=== PATIENT | female | born 1980 | race Caucasian/White ===

== ENCOUNTER 2017-09-01 08:15 | Emergency (ER) | payer SELFPAY ==
[~2017-09-01] VITALS: Ht 165.1 cm; Wt 65.8 kg
[~2017-09-01 08:15] MED LIST: DZPM2T PO; HYDR-2854 PO; HYDR-3583 PO; LEVO75TA6 PO; LVT.05T PO; METR500T PO
--- OUTSIDE RECORDS SUMMARY | 2017-09-01 09:11 | XMS REPORT ---
Author Author STEVIE VALDIVIA Organization [employer] Address Unknown Phone Unavailable Care Team Providers Care Keg Filler Name Role Phone STEVIE VALDIVIA CP Unavailable Allergies, Adverse Reactions, Alerts Substance Reaction Event Type Zithromax Z-Bradley Info Not Available Drug Allergy Problems Problem Type Condition Code Onset Dates Condition Status Assessment Encounter for dental examination Z01.20 Active Problem Encounter for dental examination Z01.20 Active Medications Medication Code System Code Instructions Start Date End Date Status Dosage Sprintec 28 [facility] [id number] not defined Synthroid [facility] [id number] 75 MCG Orally Once a day 1 tablet Procedures Procedure Coding System Code Date BITEWINGS - FOUR FILMS CPT-4 D0274 Sep 02, 2016 Periodontal maint procedures CPT-4 D4910 Sep 02, 2016 PERIODIC ORAL EXAMINATION CPT-4 D0120 Sep 02, 2016 TOPICAL FLUORIDE VARNISH CPT-4 D1206 Sep 02, 2016 Vital Signs Date/Time: Sep 02, 2016 Blood Pressure Diastolic 66 mmHg Blood Pressure Systolic 102 mmHg Cardiac Monitoring Heart Rate 69 bpm Results No Known Results Summary Purpose [employer] Submission
--- OUTSIDE RECORDS SUMMARY | 2017-09-01 09:11 | XMS REPORT ---
Author Author STEVIE VALDIVIA Organization [employer] Address Unknown Phone Unavailable Care Team Providers Care Dye Room Helper Name Role Phone STEVIE VALDIVIA CP Unavailable Allergies No Known Allergies Problems Problem Type Condition ICD-9 Code Onset Dates Condition Status Assessment Dental examination V72.2 Active Medications No Known Medications Procedures Procedure Coding System Code Date INTRAORL-PERIAPICAL 1 FILM 58854 CPT-4 D0220 Jul 03, 2015 INTRAORL-PERIAPICAL EA ADD FILM CPT-4 D0230 Jul 03, 2015 COMP ORAL EVALUATION - NEW/EST PT CPT-4 D0150 Jul 03, 2015 Periodontal scaling & root CPT-4 D4341 Jul 03, 2015 BITEWINGS - FOUR FILMS CPT-4 D0274 Jul 03, 2015 INTRAORL-PERIAPICAL EA ADD FILM CPT-4 D0230 Jul 03, 2015 Periodontal scaling & root CPT-4 D4341 Jul 03, 2015 PANORAMIC FILM SEE ALSO CODE 93570 CPT-4 D0330 Jul 03, 2015 Results No Known Results Summary Purpose [employer] Submission
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
--- OUTSIDE RECORDS SUMMARY | 2017-09-01 09:11 | XMS REPORT ---
Author Author STEVIE VALDIVIA [facility] Address [address] [place] [address] Care Team Providers Care Concrete Block Layer Name Role Phone STEVIE VALDIVIA Unavailable PROBLEMS Type Condition ICD9-CM Code QFE38-YM Code Onset Dates Condition Status SNOMED Code Problem Encounter for dental examination Z01.20 Active [id number] ALLERGIES Substance Reaction Event Type Date Status Zithromax Z-Bradley Unknown Drug Allergy Dec, Active SOCIAL HISTORY Never Assessed PLAN OF CARE Activity Details Follow Up 3 Months Reason:Perio Maint VITAL SIGNS Heart Rate 96 bpm 2016-12-04 Blood pressure systolic 113 mmHg 2016-12-04 Blood pressure diastolic 71 mmHg 2016-12-04 MEDICATIONS Medication Instructions Dosage Frequency Start Date End Date Duration Status Sprintec 28 Active Synthroid 75 MCG Orally Once a day 1 tablet 24h Active RESULTS No Results PROCEDURES Procedure Date Ordered Result Body Site Periodontal maint procedures Dec 04, 2016 IMMUNIZATIONS No Known Immunizations MEDICAL (GENERAL) HISTORY Type Description Date Medical History Thyroid problems Medical History GYNOCOLOGICAL - 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
[2017-09-01 09:12] LABS: BASOPHILS # (AUTO) 0.1 10^3/uL (0.0-0.1); BASOPHILS % (AUTO) 1 % (0-10); EOSINOPHILS # (AUTO) 0.3 10^3/uL (0.0-0.3); EOSINOPHILS % (AUTO) 4 % (0-10); LYMPHOCYTES # (AUTO) 2.8 X 10^3 (1.0-4.0); LYMPHOCYTES % (AUTO) 32 % (12-44); MEAN CORPUSCULAR HEMOGLOBIN 30 PG (25-34); MEAN CORPUSCULAR HGB CONC 34 G/DL (32-36); MEAN CORPUSCULAR VOLUME 87 FL (80-99); MEAN PLATELET VOLUME 10.9 FL (7.4-10.4); MONOCYTES # (AUTO) 0.6 X 10^3 (0.0-1.0); MONOCYTES % (AUTO) 6 % (0-12); NEUTROPHILS % (AUTO) 58 % (42-75); PLATELET COUNT 205 10^3/uL (130-400); RED BLOOD COUNT 4.42 10^6/uL (4.35-5.85); RED CELL DISTRIBUTION WIDTH 13.3 % (10.0-14.5); WHITE BLOOD COUNT 8.7 10^3/uL (4.3-11.0)
[2017-09-01 09:28] LABS: ALANINE AMINOTRANSFERASE 15 U/L (0-55); ALBUMIN 3.8 GM/DL (3.2-4.5); ANION GAP 8 MMOL/L (5-14); ASPARTATE AMINO TRANSFERASE 14 U/L (5-34); BILIRUBIN,TOTAL 0.8 MG/DL (0.1-1.0); BLOOD UREA NITROGEN 17 MG/DL (7-18); BUN/CREATININE RATIO 19; CALCIUM 8.7 MG/DL (8.5-10.1); CARBON DIOXIDE 22 MMOL/L (21-32); CHLORIDE 109 MMOL/L (98-107); GFR ESTIMATED > 60; GLUCOSE 79 MG/DL (70-105); POTASSIUM 3.6 MMOL/L (3.6-5.0); SODIUM 139 MMOL/L (135-145)
[2017-09-01 09:45] LABS: BILIRUBIN,URINE NEGATIVE (NEGATIVE); KETONES,URINE NEGATIVE (NEGATIVE); LEUKOCYTE ESTERASE ,URINE NEGATIVE (NEGATIVE); NITRITE,URINE NEGATIVE (NEGATIVE); PH,URINE 7 (5-9); PROTEIN,URINE NEGATIVE (NEGATIVE); UROBILINOGEN,URINE 1 MG/DL (NORMAL)
[2017-09-01 10:01] LABS: SQUAMOUS EPITHELIAL CELL,UR TNTC /HPF
--- NOTE | 2017-09-01 10:48 | Diagnostic Imaging Report ---
INDICATION: Chest pain COMPARISON: 06/19/2007 FINDINGS: Upright portable view of the chest is obtained. Heart size is normal. The pulmonary vessels appear unremarkable. There is no pneumothorax, mediastinal widening or pleural fluid demonstrated. Lungs are clear. IMPRESSION: No acute abnormalities demonstrated. Dictated by: Dictated on workstation # [id number]
[2017-09-01 10:52] LABS: THYROID STIMULATING HORMONE 9.81 UIU/ML (0.35-4.94); TROPONIN I < 0.30 NG/ML (<0.30)
--- NOTE | 2017-09-01 11:44 | ED General ---
General Chief Complaint: General Problems/Pain Stated Complaint: POSSIBLE SEIZURE,CP Nursing Triage Note: STATES LAST NIGHT SHE TOOK A BITE OF FOOD AND STARTED HAVING LEFT SIDED CHEST PAIN. FAMILY FOUND HER PASSED OUT. WHEN SHE AWOKE SHE HAD BEEN INC OF URINE. STATES SHE THINKS SHE HAD A SEIZURE AND OR HAD A HEART ATTACK. STATES SHE HAS BEEN UNDER A GREAT DEAL OF STRESS. Nursing Sepsis Screen: No Definite Risk Source of Information: Patient Exam Limitations: No Limitations History of Present Illness Time Seen by Provider: 08:50 Initial Comments This 37-year-old young lady presents to the emergency room requesting evaluation for an episode that happened last night. She reports standing in the kitchen when a sudden sharp pain occurred in the left chest. The pain radiated to the left shoulder and neck. She then went to the living room anticipating calling for help. She sat down on the stairs. Her significant other and her son found her there with decreased responsiveness. She was also diaphoretic. She had apparently lost some urine and was unresponsive for about 5 seconds. She has been under increased stress recently and has had weight loss. She has not been very compliant with her thyroid medication. She has had some anorexia related to her stress. She is feeling much better today. She denies any headache although she has had some headaches recently. The chest pain is gone. She has a notably tender tense muscle medial to the left scapula. Allergies and Home Medications Allergies Coded Allergies: azithromycin (Verified Allergy, Unknown, 04/14/16) Home Medications Levothyroxine Sodium 75 Mcg Tablet, 75 MCG PO DAILY, #30 Prescribed by: INDRA ADDISON on 04/14/16 7590 Constitutional: see HPI EENTM: no symptoms reported Respiratory: see HPI Cardiovascular: see HPI Gastrointestinal: no symptoms reported Genitourinary: no symptoms reported Musculoskeletal: no symptoms reported Skin: no symptoms reported Psychiatric/Neurological: See HPI Hematologic/Lymphatic: No Symptoms Reported Past Zppuaug-Indywn-Zhbugz Hx Patient Social History Alcohol Use: Occasionally Uses Recreational Drug Use: Yes (POT) Smoking Status: Never a Smoker Recent Foreign Travel: No Contact w/Someone Who Travel: No Recent Infectious Disease Expo: No Recent Hopitalizations: Yes (CHILDBIRTH) Immunizations Up To Date Tetanus Booster (TDap): More than 5yrs Surgeries History of Surgeries: Yes (hemorrhoidectomy) Surgeries: Appendectomy Respiratory History of Respiratory Disorde: No Cardiovascular History of Cardiac Disorders: No Neurological History of Neurological Disord: Yes Neurological Disorders: Headaches /Migraines Reproductive System : No Last Menstrual Period: Aug 01, 2017 Hx Reproductive Disorders: Yes Female Reproductive Disorders: Ovarian Cyst Genitourinary History of Genitourinary Disor: No Gastrointestinal History of Gastrointestinal Di: Yes Gastrointestinal Disorders: Hemorrhoids Musculoskeletal History of Musculoskeletal Dis: No Endocrine History of Endocrine Disorders: Yes Endocrine Disorders: Hypothyroidsim HEENT History of HEENT Disorders: No Cancer History of Cancer: No Psychosocial History of Psychiatric Problem: Yes Behavioral Health Disorders: Eating Disorder, Anxiety, Depression Integumentary History of Skin or Integumenta: No Blood Transfusions History of Blood Disorders: No Family Medical History Significant Family History: Other Conditions/Hx Physical Exam Vital Signs Vital Sign - Last 12Hours 09/01/17 09/01/17 08:30 11:52 Temp 98.0 Pulse 65 Resp 18 B/P (MAP) 112/86 Pulse Ox 100 O2 Delivery Nasal Cannula Capillary Refill : Less Than 3 Seconds General Appearance: No Apparent Distress, WD/WN HEENT: PERRL/EOMI, Normal ENT Inspection, Pharynx Normal Neck: Normal Inspection Respiratory: Chest Non Tender, Lungs Clear, Normal Breath Sounds, No Accessory Muscle Use Cardiovascular: Regular Rate, Rhythm, No Edema, No Murmur Gastrointestinal: Normal Bowel Sounds, Non Tender, Soft Extremity: Normal Inspection, Non Tender, No Calf Tenderness, No Pedal Edema, Other (Negative Jorge. 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 She was advised to follow up closely with her primary care provider and return to care if symptoms returned. ECG Initial ECG Impression Date: Sep 01, 2017 Initial ECG Impression Time: 08:47 Initial ECG Rate: 49 Initial ECG Rhythm: S.Lennox Comment Borderline sinus bradycardia with no ST elevation or depression. No abnormal intervals or axis deviation. 2 PACs noted. Diagnostic Imaging Diagonstic Imaging: Xray Plain Films/CT/US/NM/MRI: chest Comments NAME: CARLOS ESPINAL [facility] REC#: [id number] PT STATUS: REG ER : 1980 PHYSICIAN: BRENNEN BERRY MD ADMIT DATE: 09/01/17/ER Signed Date of Exam: 09/01/17 CHEST 1 VIEW, AP/PA ONLY INDICATION: Chest pain COMPARISON: 06/19/2007 FINDINGS: Upright portable view of the chest is obtained. Heart size is normal. The pulmonary vessels appear unremarkable. There is no pneumothorax, mediastinal widening or pleural fluid demonstrated. Lungs are clear. IMPRESSION: No acute abnormalities demonstrated. Dictated by: Dictated on workstation # [id number] Dict: 09/01/17 1040 Trans: 09/01/17 1053 Interpreted by: TELMA PEREZ DO Electronically signed by: TELMA PEREZ DO 09/01/17 1053 Departure Impression Impression: Primary Impression: Atypical chest pain Additional Impressions: Syncope Qualified Codes: R55 - Syncope and collapse Muscle spasm of back Disposition: HOME, SELF-CARE Condition: Improved Departure-Patient Inst. Decision time for Depature: 11:42 Referrals: NO,LOCAL PHYSICIAN (PCP/Family) Primary Care Physician Patient Instructions: Chest Pain That Is Not Caused by the Heart (DC), Syncope (Fainting) Add. Discharge Instructions: Drink plenty of clear liquids. Follow-up with your primary care provider soon as possible. Return to emergency room if symptoms worsen. You may use ibuprofen up to 600 milligrams every 6 hours as needed for pain. Add Tylenol (acetaminophen) up to 1000 mg every 6 hours as needed for additional pain relief. Gentle heat such as a heating pad on low may also be helpful for your spasms muscle. Return to the emergency room if you have any further episodes of syncope ( passing out). All discharge instructions reviewed with patient and/or family. Voiced understanding. BRENNEN BERRY MD Sep 01, 2017 11:44
[2017-09-01 11:52] VITALS: BP 96/66
== END 2017-09-01 11:52 | disposition home or self-care (01) ==
LOC: EDUNIT# 08:15 → ER 08:16
DX: M62.830 Muscle spasm of back (principal); R07.89 Other chest pain; R55 Syncope and collapse; F41.9 Anxiety disorder, unspecified; F31.9 Bipolar disorder, unspecified; E03.9 Hypothyroidism, unspecified; Z87.42 Personal history of other diseases of the female genital tract; Z90.49 Acquired absence of other specified parts of digestive tract; Z87.19 Personal history of other diseases of the digestive system
CPT/HCPCS: 36415; 71010; 80053; 81000; 83735; 84439; 84443; 84484; 84703; 85025; 93005

== ENCOUNTER 2018-06-16 14:56 | Emergency (ER) | payer SELFPAY ==
[~2018-06-16] VITALS: Ht 162.6 cm; Wt 61.2 kg
[2018-06-16] MEDS ORDERED: SERT25TA PO (15:34)
[2018-06-16] MEDS ORDERED: KETOROLAC 60 MG/2 ML VIAL IM STA (15:57)
--- NOTE | 2018-06-16 16:09 | ED Upper Extremity ---
General Chief Complaint: Upper Extremity Stated Complaint: RT ARM TINGLING/BURNING Nursing Triage Note: PT CO OF R UPPER EXT NUMBNESS AND BURNING TO R ARM, PT STATES CUTS HAIR AND CLEANS HOUSES. PT STATES HAS BURNING FROM BACK OF NECK TO HAND FOR A FEW WEEKS Nursing Sepsis Screen: No Definite Risk (BRENNEN WILKERSON) History of Present Illness Date Seen by Provider: Jun 16, 2018 Time Seen by Provider: 15:22 Initial Comments Patient with history of carpal tunnel syndrome and hypothyroidism presents to emergency department with complaints of numbness, tingling, and burning sensation which radiates from her right scapula down her right upper extremity to her fingertips. She reports that she has a history of carpal tunnel syndrome but the symptoms began to worsen when she took a road trip to [place] on . The discomfort is constant and worsens when she wakes from sleep at night. She has a history of hypothyroidism and stopped receiving treatment for it two years prior during a period that she became uninsured. She was given a prescription for levothyroxine a month prior to symptom onset, but has yet to begin taking the medication. She has a history of right sided headaches that cause cervical tension and exacerbate the symptoms of her arm. Onset: other (05/21/18) Severity: mild Pain/Injury Location: right shoulder, right arm, right elbow, right forearm, right wrist, right hand, right 3rd finger Method of Injury: unknown Modifying Factors: Worse With Rest (BRENNEN WILKERSON) Onset: other (05/21/18) Modifying Factors: Improves With Immobilization; Worse With Movement (JULIETTE TEJEDA MD) Allergies and Home Medications Allergies Coded Allergies: azithromycin (Verified Allergy, Unknown, 04/14/16) Home Medications Levothyroxine Sodium 75 Mcg Tablet, 75 MCG PO DAILY Prescribed by: INDRA ADDISON on 04/14/16 7187 Prednisone 20 Mg Tab, 40 MG PO DAILY Prescribed by: JULIETTE TEJEDA on 06/16/18 1725 Patient Home Medication List Home Medication List Reviewed: Yes (BRENNEN WILKERSON) Home Medication List Reviewed: Yes (JULIETTE TEJEDA MD) Constitutional: see HPI EENTM: blurred vision; No hearing loss, No double vision, No vision loss Respiratory: see HPI, short of breath Cardiovascular: chest pain, syncope Gastrointestinal: No abdominal pain; constipation, diarrhea, loss of appetite; No nausea, No vomiting Genitourinary: no symptoms reported Musculoskeletal: muscle pain, muscle weakness, neck pain Skin: no symptoms reported Psychiatric/Neurological: Anxiety, Depressed, Headache, Numbness, Paresthesia, Seizure, Tingling, Weakness (BRENNEN WILKERSON) Respiratory: No cough, No wheezing Cardiovascular: No chest pain, No palpitations Musculoskeletal: joint swelling, muscle pain, muscle stiffness Skin: no symptoms reported (JULIETTE TEJEDA MD) Past Hwwccgq-Vqtipu-Fgjefl Hx Past Med/Social Hx: Reviewed Nursing Past Med/Soc Hx (JULIETTE TEJEDA MD) Patient Social History Alcohol Use: Occasionally Uses Recreational Drug Use: Yes (SMOKES POT) Smoking Status: Never a Smoker Recent Foreign Travel: No Contact w/Someone Who Travel: No Recent Infectious Disease Expo: No Recent Hopitalizations: No (CHILDBIRTH) Physical Abuse: No Sexual Abuse: No (BRENNEN WILKERSON) Immunizations Up To Date Tetanus Booster (TDap): More than 5yrs (BRENNEN WILKERSON) Past Medical History Surgeries: Yes (hemorrhoidectomy) Appendectomy, Rectal (Anal fissure repair, hemmorrhoidectomy) Respiratory: No Cardiac: No Neurological: Yes Headaches /Migraines, Seizure Disorder : No Last Menstrual Period: Jun 01, 2018 Reproductive Disorders: Yes Female Reproductive Disorders: Ovarian Cyst Genitourinary: No Gastrointestinal: Yes Hemorrhoids Musculoskeletal: No Endocrine: Yes Hypothyroidsim HEENT: No Cancer: No Psychosocial: Yes Eating Disorder, Anxiety, Depression Nursing Suicide Risk Score: 0 Integumentary: No Blood Disorders: No (BRENNEN WILKERSON) Family Medical History Reviewed Nursing Family Hx (JULIETTE TEJEDA MD) Diabetes, Other Conditions/Hx (BRENNEN WILKERSON) Physical Exam Vital Signs Vital Signs - First Documented 06/16/18 15:20 Temp 96.3 Pulse 80 Resp 18 B/P (MAP) 145/103 (117) Pulse Ox 98 (JULIETTE TEJEDA MD) Vital Signs Capillary Refill : Less Than 3 Seconds (BRENNEN WILKERSON) Height, Weight, BMI Height: 5'4.00" Weight: 135lbs. oz. 61.991733pt; BMI Method:Stated General Appearance: WD/WN, mild distress HEENT: PERRL/EOMI, normal ENT inspection, TMs normal, pharynx normal, other ( No thyroidmegaly) Neck: non-tender, full range of motion, supple, normal inspection Cardiovascular: normal peripheral pulses, regular rate, rhythm, no edema, no gallop, no JVD, no murmur Respiratory: chest non-tender, lungs clear, normal breath sounds, no respiratory distress, no accessory muscle use Gastrointestinal: normal bowel sounds, non tender, soft, no organomegaly, no pulsatile mass; No distended, No guarding Back: normal inspection, no vertebral tenderness Shoulder: normal inspection, non-tender, no evidence of injury, normal ROM; No asymmetry, No ecchymosis, No pain, No swelling Elbow/Forearm: normal inspection, non-tender, no evidence of injury, normal ROM , asymmetry, ecchymosis, swelling Wrist: Yes normal inspection, Yes non-tender, Yes no evidence of injury, Yes normal ROM; No asymmetry, No ecchymosis, No swelling Hand: normal inspection, non-tender, no evidence of injury, normal ROM Neurologic/Tendon: No normal sensation (Decreased sensation right upper extremity), No normal motor functions (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) Neurologic/Psychiatric: enrollment eligibility representative II-XII nml as tested; No no motor/sensory deficits (Decreased sensation and pipe welder strength right upper extremity); alert, normal mood/affect, oriented x 3 Skin: normal color, warm/dry Lymphatic: no adenopathy (BRENNEN WILKERSON MED STUDENT) Cardiovascular: regular rate, rhythm, no murmur Respiratory: lungs clear, normal breath sounds, no respiratory distress Elbow/Forearm: no evidence of injury, normal ROM, Right Wrist: Yes normal ROM Hand: no evidence of injury, normal ROM Neurologic/Psychiatric: alert, oriented x 3 Skin: normal color, warm/dry (JULIETTE TEJEDA MD) Progress/Results/Core Measures Results/Orders Lab Results Laboratory Tests Test 06/16/18 16:07 Range/Units Sodium Level 135 135-145 MMOL/L Potassium Level 4.1 3.6-5.0 MMOL/L Chloride Level 106 98-107 MMOL/L Carbon Dioxide Level 24 21-32 MMOL/L Anion Gap 5 5-14 MMOL/L Blood Urea Nitrogen 14 7-18 MG/DL Creatinine 0.69 0.60-1.30 MG/DL Estimat Glomerular Filtration Rate > 60 BUN/Creatinine Ratio 20 Glucose Level 86 70-105 MG/DL Calcium Level 8.9 8.5-10.1 MG/DL Free Thyroxine 0.80 0.70-1.48 NG/DL TSH [place] Testing 6.60 H 0.35-4.94 UIU/ML (JULIETTE TEJEDA MD) My Orders Orders - JULIETTE TEJEDA MD Thyroid Analyzer (06/16/18 15:52) Ct Cervical Spine Wo (06/16/18 15:52) Urine Bedside (06/16/18 15:54) Ketorolac Injection (Toradol Injection) (06/16/18 15:57) Basic Metabolic Panel (06/16/18 16:07) Free T4 (Free Thyroxine) (06/16/18 16:07) (JULIETTE TEJEDA MD) Vital Signs/I&O 06/16/18 15:20 Temp 96.3 Pulse 80 Resp 18 B/P (MAP) 145/103 (117) Pulse Ox 98 (JULIETTE TEJEDA MD) Blood Pressure Mean: 117 Progress Progress Note : Progress Note I have seen and evaluated the patient and agree with above except as indicated. I have directed the plan of care. Patient is here with right arm pain radiating up to her shoulder. She is concerned about neck problems given that she had a accident last year. Pain is worse since last month when she took a road trip and slept on her arm wrong and a. She was wanting further evaluation. Went to urgent care who told her that she is not having pain medicine. She states it does not which she went for and was concerned about the care. She presented to the ER. Does have history of hypothyroidism and is not on her meds currently. Does have history of blood sugar problems and her family and did have a history of gestational diabetes. We will check labs including BMP and thyroid function. CT of the neck ordered. Toradol 60 mg IM ordered. Monitor patient. 1716: CT negative. Wrist splint applied. We will do a short course of outpatient steroids and she has a follow-up point with her doctor next week which she will keep. Discharged home with return precautions. Patient verbalize understanding instructions and agreement with plan. (JULIETTE TEJEDA MD) Diagnostic Imaging Diagonstic Imaging: CT Plain Films/CT/US/NM/MRI: c-spine Comments NAME: CARLOS [facility] REC#: [id number] PT STATUS: GWENDOLYN KABA : 1980 PHYSICIAN: JULIETTE TEJEDA MD ADMIT DATE: 06/16/18/ER Draft Date of Exam:06/16/18 CT CERVICAL SPINE WO PROCEDURE: CT cervical spine without contrast. TECHNIQUE: Multiple contiguous axial images were obtained through the cervical spine without the use of intravenous contrast. Sagittal and coronal reformations were then performed. INDICATION: Headache with trauma 2 months ago. FINDINGS: Sagittal and coronal reformatted images show good alignment. Body heights and disc spaces are well maintained. The atlantoaxial joint is normal. The facets show good alignment. There are no fractures demonstrated. The surrounding soft tissues appear normal. IMPRESSION: Normal CT scan of cervical spine. Dictated on workstation # [id number] Dict: 06/16/18 1700 Trans: 06/16/18 1709 [facility] [id number] Interpreted by: GUILLERMINA LONDON MD Electronically signed by: (JULIETTE TEJEDA MD) Departure Impression Primary Impression: Right arm pain Additional Impression: Carpal tunnel syndrome, right Disposition: 01 HOME, SELF-CARE Condition: Improved Departure-Patient Inst. Decision time for Depature: 17:22 (JULIETTE TEJEDA MD) Referrals: NO,LOCAL PHYSICIAN (PCP/Family) Primary Care Physician Patient Instructions: Carpal Tunnel Syndrome (DC), Muscle Strain (DC) Add. Discharge Instructions: All discharge instructions reviewed with patient and/or family. Voiced understanding. You may take ibuprofen 600 mg every 8 hours as needed for pain. You may take Tylenol/acetaminophen 1000 mg every 8 hours as needed for pain. Take other medications as prescribed. Follow-up with your DrStorm as scheduled next week. Return for worse pain, weakness, swelling, fever or other concerns as needed. Restart and continue your thyroid medications as previously prescribed. Scripts Prednisone (Prednisone) 20 Mg Tab 40 MG PO DAILY, #10 TAB 0 Refills Prov: JULIETTE TEJEDA MD 06/16/18 Copy Copies To 1: MARY BETH RICHARD JOSHUA MED STUDENT Jun 16, 2018 16:09 JULIETTE TEJEDA MD Jun 16, 2018 17:16
[2018-06-16 16:30] LABS: BUN/CREATININE RATIO 20; CALCIUM 8.9 MG/DL (8.5-10.1); CARBON DIOXIDE 24 MMOL/L (21-32); CHLORIDE 106 MMOL/L (98-107); CREATININE SERUM 0.69 MG/DL (0.60-1.30); GFR ESTIMATED > 60; GLUCOSE 86 MG/DL (70-105); POTASSIUM 4.1 MMOL/L (3.6-5.0); SODIUM 135 MMOL/L (135-145)
[2018-06-16 16:51] LABS: TSH (THYROID ANALYZER) 6.6 UIU/ML (0.35-4.94)
--- NOTE | 2018-06-16 17:09 | Diagnostic Imaging Report ---
PROCEDURE: CT cervical spine without contrast. TECHNIQUE: Multiple contiguous axial images were obtained through the cervical spine without the use of intravenous contrast. Sagittal and coronal reformations were then performed. INDICATION: Headache with trauma 2 months ago. FINDINGS: Sagittal and coronal reformatted images show good alignment. Body heights and disc spaces are well maintained. The atlantoaxial joint is normal. The facets show good alignment. There are no fractures demonstrated. The surrounding soft tissues appear normal. IMPRESSION: Normal CT scan of cervical spine. Dictated by: Dictated on workstation # [id number]
[2018-06-16] MEDS ORDERED: PRD20T PO (17:25)
[2018-06-16 17:26] LABS: FREE T4 (FREE THYROXINE) 0.8 NG/DL (0.70-1.48)
[2018-06-16 17:37] VITALS: BP 130/88
--- OUTSIDE RECORDS SUMMARY | 2018-06-17 11:25 | XMS REPORT ---
Author Author STEVIE VALDIVIA [facility] DENT[facility] Address [address] [place] [address] Care Team Providers Care Real Estate Photographer Name Role Phone STEVIE VALDIVIA Unavailable PROBLEMS Type Condition ICD9-CM Code [id number] Code Onset Dates Condition Status SNOMED Code Problem Encounter for dental examination Z01.20 Active [id number] ALLERGIES Substance Reaction Event Type Date Status Zithromax Z-Bradley Unknown Drug Allergy March, Active SOCIAL HISTORY Never Assessed PLAN OF CARE Activity Details Follow Up 4 Months Reason:Perio Maint VITAL SIGNS MEDICATIONS Medication Instructions Dosage Frequency Start Date End Date Duration Status Sprintec 28 Active Synthroid 75 MCG Orally Once a day 1 tablet 24h Active RESULTS No Results PROCEDURES Procedure Date Ordered Result Body Site Periodontal maint procedures March 03, 2017 TOPICAL FLUORIDE VARNISH March 03, 2017 IMMUNIZATIONS No Known Immunizations MEDICAL (GENERAL) HISTORY Type Description Date Medical History Thyroid problems Medical History GYNOCOLOGICAL - 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
--- OUTSIDE RECORDS SUMMARY | 2018-06-17 11:26 | XMS REPORT | Continuity of Care Document ---
Author Author [facility] Organization [facility] Address Unknown Phone Unavailable Allergies Active Description Code Type Severity Reaction Onset Reported/Identified Relationship to Patient Clinical Status Yes azithromycin [id number] Drug Allergy Unknown N/A 04/14/2016 Medications There is no data. Problems Date Dx Coded Attending Type Code [...] CAUSE STATUS 06/22/2012 Ot E812.0 MV COLLISION NOS-UMBRELLA REPAIRER 08/30/2012 Ot 455.0 INT HEMORRHOID W/O COMPL 08/30/2012 Ot 565.0 ANAL FISSURE 02/27/2013 SELMA SANDOVAL DO Ot 623.8 NONINFLAM DIS VAGINA NEC 02/27/2013 SELMA SANDOVAL DO Ot 625.9 FEM GENITAL SYMPTOMS NOS 08/04/2013 BRENNEN BERRY MD Ot 611.71 MASTODYNIA 08/04/2013 BRENNEN BERRY MD Ot 625.9 FEM GENITAL SYMPTOMS NOS 08/04/2013 BRENNEN BERRY MD Ot 626.0 ABSENCE OF MENSTRUATION 09/12/2014 EDDIE LONDONOP Ot 610.0 09/12/2014 EDDIE LONDONO BOARD WINDER Ot V16.3 09/13/2014 EDDIE LONDONO BOARD WINDER Ot 610.0 09/13/2014 EDDIE LONDONOP Ot V16.3 11/16/2014 Ot 610.0 11/16/2014 Ot 565.0 11/16/2014 Ot V72.63 11/16/2014 Ot V74.8 11/16/2014 LEONORA MELCHORP Ot 240.9 11/16/2014 LEONORA MELCHOR BOARD WINDER Ot 625.0 11/16/2014 EDDIE LONDONO BOARD WINDER Ot 610.0 11/16/2014 EDDIE LONDONOP Ot V16.3 05/22/2015 QUICK, LEONORA Veras BOARD WINDER Ot 240.9 05/22/2015 QUICKLEONORA BOARD WINDER Ot 625.0 04/14/2016 MACRINA AVILA Ot N92.0 EXCESSIVE AND FREQUENT MENSTRUATION WITH 04/15/2016 MACRINA AVILA Ot N92.0 EXCESSIVE AND FREQUENT MENSTRUATION WITH 05/01/2016 MACRINA AVILA Ot N92.0 EXCESSIVE AND FREQUENT MENSTRUATION WITH 05/05/2016 Ot 565.0 ANAL FISSURE 05/05/2016 Ot V72.63 PRE- PROCEDURAL LABORATORY EXAMINATION 05/05/2016 Ot V74.8 SCREEN- BACTERIAL DIS NEC 05/05/2016 RUIZLEONORA BOARD WINDER Ot 240.9 GOITER NOS 05/05/2016 LEONORA MELCHOR BOARD WINDER Ot 625.0 DYSPAREUNIA 05/05/2016 EDDIE LONDONO BOARD WINDER Ot 610.0 SOLITARY CYST OF BREAST 05/05/2016 EDDIE LONDONO BOARD WINDER Ot V16.3 FAMILY HX-BREAST MALIG 05/05/2016 MACRINA AVILA Ot N92.0 EXCESSIVE AND FREQUENT MENSTRUATION WITH 05/05/2016 Ot 565.0 ANAL FISSURE 05/05/2016 Ot V72.63 PRE- PROCEDURAL LABORATORY EXAMINATION 05/05/2016 Ot V74.8 SCREEN- BACTERIAL DIS NEC 07/20/2016 Ot 565.0 ANAL FISSURE 07/20/2016 Ot V72.63 PRE- PROCEDURAL LABORATORY EXAMINATION 07/20/2016 Ot V74.8 SCREEN- BACTERIAL DIS NEC 07/21/2016 MACRINA AVILA Ot N92.0 EXCESSIVE AND FREQUENT MENSTRUATION WITH 09/03/2017 JAMAL HAN, BRENENN Tadeo Ot E03.9 HYPOTHYROIDISM, UNSPECIFIED 09/03/2017 BRENNEN BERRY MD, Ot F31.9 BIPOLAR DISORDER, UNSPECIFIED 09/03/2017 BRENNEN BERRY MD, Ot F41.9 ANXIETY DISORDER, UNSPECIFIED 09/03/2017 BRENNEN BERRY MD, Ot M62.830 MUSCLE SPASM OF BACK 09/03/2017 BRENNEN BERRY MD, Ot R07.89 OTHER CHEST PAIN 09/03/2017 BRENNEN BERRY MD, Ot R07.9 CHEST PAIN, UNSPECIFIED 09/03/2017 BRENNEN BERRY MD, Ot R55 SYNCOPE AND COLLAPSE 09/03/2017 BRENNEN BERRY MD, Ot Z87.19 PERSONAL HISTORY OF OTHER DISEASES OF TH 09/03/2017 BRENNEN BERRY MD, Ot Z87.42 PERSONAL HISTORY OF OTH DISEASES OF THE 09/03/2017 BRENNEN BERRY MD, Ot Z90.49 ACQUIRED ABSENCE OF OTHER SPECIFIED PART Procedures There is no data. Results Test Result Range Complete blood count (CBC) with automated white blood cell (WBC) differential - 09/01/17 08:55 Blood leukocytes automated count (number/volume) 8.7 10*3/uL 4.3-11.0 Blood erythrocytes automated count (number/volume) 4.42 10*6/uL 4.35-5.85 Venous blood hemoglobin measurement (mass/volume) 13.1 g/dL 11.5-16.0 Blood hematocrit (volume fraction) 39 % 35-52 Automated erythrocyte mean corpuscular volume 87 [foz_us] 80-99 Automated erythrocyte mean corpuscular hemoglobin (mass per erythrocyte) 30 pg 25-34 Automated erythrocyte mean corpuscular hemoglobin concentration measurement ( mass/volume) 34 g/dL 32-36 Automated erythrocyte distribution width ratio 13.3 % 10.0-14.5 Automated blood platelet count (count/volume) 205 10*3/uL 130-400 Automated blood platelet mean volume measurement 10.9 [foz_us] 7.4-10.4 Automated blood neutrophils/100 leukocytes 58 % 42-75 Automated blood lymphocytes/100 leukocytes 32 % 12-44 Blood monocytes/100 leukocytes 6 % 0-12 Automated blood eosinophils/100 leukocytes 4 % 0-10 Automated blood basophils/100 leukocytes 1 % 0-10 Blood neutrophils automated count (number/volume) 5.0 10*3 1.8-7.8 Blood lymphocytes automated count (number/volume) 2.8 10*3 1.0-4.0 Blood monocytes automated count (number/volume) 0.6 10*3 0.0-1.0 Automated eosinophil count 0.3 10*3/uL 0.0-0.3 Automated blood basophil count (count/volume) 0.1 10*3/uL 0.0-0.1 Comprehensive metabolic panel - 09/01/17 08:55 Serum or plasma sodium measurement (moles/volume) 139 mmol/L 135-145 Serum or plasma potassium measurement (moles/volume) 3.6 mmol/L 3.6-5.0 Serum or plasma chloride measurement (moles/volume) 109 mmol/L 98-107 Carbon dioxide 22 mmol/L 21-32 Serum or plasma anion gap determination (moles/volume) 8 mmol/L 5-14 Serum or plasma urea nitrogen measurement (mass/volume) 17 mg/dL 7-18 Serum or plasma creatinine measurement (mass/volume) 0.90 mg/dL 0.60-1.30 Serum or plasma urea nitrogen/creatinine mass ratio 19 NRG Serum or plasma creatinine measurement with calculation of estimated glomerular filtration rate > NRG Serum or plasma glucose measurement (mass/volume) 79 mg/dL 70-105 Serum or plasma calcium measurement (mass/volume) 8.7 mg/dL 8.5-10.1 Serum or plasma total bilirubin measurement (mass/volume) 0.8 mg/dL 0.1-1.0 Serum or plasma alkaline phosphatase measurement (enzymatic activity/volume) 41 U/L 40-136 Serum or plasma aspartate aminotransferase measurement (enzymatic activity/ volume) 14 U/L 5-34 Serum or plasma alanine aminotransferase measurement (enzymatic activity/volume ) 15 U/L 0-55 Serum or plasma protein measurement (mass/volume) 6.0 g/dL 6.4-8.2 Serum or plasma albumin measurement (mass/volume) 3.8 g/dL 3.2-4.5 Magnesium - 09/01/17 08:55 Magnesium 2.0 mg/dL 1.8-2.4 Serum or plasma choriogonadotropin ( test) detection - 09/01/17 08:55 Serum or plasma choriogonadotropin ( test) detection NEGATIVE NEGATIVE Serum or plasma troponin i.cardiac measurement (mass/volume) - 09/01/17 08:55 Serum or plasma troponin i.cardiac measurement (mass/volume) < ng/ mL <0.30 THYROID STIMULATING HORMONE - 09/01/17 08:55 THYROID STIMULATING HORMONE 9.81 u[iU]/mL 0.35-4.94 Serum or plasma thyroxine (T4) free measurement (mass/volume) - 09/01/17 08:55 Serum or plasma thyroxine (T4) free measurement (mass/volume) 0.71 ng/dL 0.70-1.48 Complete urinalysis with reflex to culture - 09/01/17 09:30 Urine color determination YELLOW NRG Urine clarity determination CLEAR NRG Urine pH measurement by test strip 7 5-9 Specific gravity of urine by test strip 1.020 1.016- 1.022 Urine protein assay by test strip, semi-quantitative NEGATIVE NEGATIVE Urine glucose detection by automated test strip NEGATIVE NEGATIVE Erythrocytes detection in urine sediment by light microscopy NEGATIVE NEGATIVE Urine ketones detection by automated test strip NEGATIVE NEGATIVE Urine nitrite detection by test strip NEGATIVE NEGATIVE Urine total bilirubin detection by test strip NEGATIVE NEGATIVE Urine urobilinogen measurement by automated test strip (mass/volume) 1 mg/dL NORMAL Urine leukocyte esterase detection by dipstick NEGATIVE NEGATIVE Automated urine sediment erythrocyte count by microscopy (number/high power field) NONE NRG Automated urine sediment leukocyte count by microscopy (number/high power field ) NONE NRG Bacteria detection in urine sediment by light microscopy NEGATIVE NRG Squamous epithelial cells detection in urine sediment by light microscopy TNTC NRG Crystals detection in urine sediment by light microscopy NONE NRG Casts detection in urine sediment by light microscopy NONE NRG Mucus detection in urine sediment by light microscopy MODERATE NRG Complete urinalysis with reflex to culture NO NRG TSH w/ FREE T4 - 05/18/18 11:34 TSH 8.57 mIU/L NRG T4, FREE 1.0 ng/dL 0.8-1.8 Encounters ACCT No. Visit Date/Time Discharge Status Pt. Type Provider Facility Loc./Unit Complaint [id number] 09/01/2017 08:16:00 09/01/2017 11:52:00 DIS Outpatient BRENNEN BERRY MD [facility] ER POSSIBLE SEIZURE,CP [id number] 04/14/2016 14:27:00 04/14/2016 17:10:00 DIS Emergency MACRINA AVILA [facility] ER VAG BLEEDING [id number] 11/30/2014 15:02:00 11/30/2014 23:59:59 CLS Outpatient DOMINGO TENORIO BOARD WINDER [facility] QUICK [id number] 09/04/2014 12:59:00 09/04/2014 23:59:59 CLS Outpatient LONDONOEDDIE BOARD WINDER [facility] RAD [id number] 09/12/2013 10:40:00 09/12/2013 23:59:59 CLS Outpatient LEONORA MELCHOR BOARD WINDER [facility] RAD [id number] 08/04/2013 08:18:00 08/04/2013 10:40:00 DIS Emergency BRENNEN BERRY MD [facility] ER [id number] 02/27/2013 19:25:00 02/27/2013 19:53:00 DIS Emergency SELMA SANDOVAL DO [facility] ER [id number] 08/30/2012 05:43:00 Document Registration [id number] 08/25/2012 09:37:00 Document Registration [id number] 06/22/2012 08:59:00 Document Registration [id number] 12/14/2011 20:14:00 Document Registration [id number] 01/19/2011 16:54:00 Document Registration [id number] 04/30/2010 15:00:00 Document Registration [id number] 05/18/2018 11:40:00 05/18/2018 23:59:59 CLS Outpatient MARY BETH RICHARD DO [facility] [id number] 05/18/2018 11:40:00 Document Registration
== END 2018-06-16 17:37 | disposition home or self-care (01) ==
LOC: EDUNIT# 14:56 → ER 14:57
DX: G56.01 Carpal tunnel syndrome, right upper limb (principal); E03.9 Hypothyroidism, unspecified; G40.909 Epilepsy, unspecified, not intractable, without status epilepticus; G43.909 Migraine, unspecified, not intractable, without status migrainosus; F41.9 Anxiety disorder, unspecified; F32.9 Major depressive disorder, single episode, unspecified; F12.10 Cannabis abuse, uncomplicated; Z90.89 Acquired absence of other organs; Z87.448 Personal history of other diseases of urinary system; Z88.0 Allergy status to penicillin; Z79.52 Long term (current) use of systemic steroids
CPT/HCPCS: 36415; 72125; 80048; 84439; 84443; 84703